=== PATIENT | male | born 1980 | race Caucasian/White ===

== ENCOUNTER 2018-02-17 00:50 | Emergency (ER) | payer MEDICAID ==
[~2018-02-17] VITALS: Ht 175.3 cm; Wt 60.2 kg
[2018-02-17] MEDS ORDERED: ACETAMINOPHEN 325 MG TABLET ONE (01:09)
[2018-02-17] MEDS ORDERED: ACETAMINOPHEN 325 MG TABLET PO ONE (01:30)
[2018-02-17 02:06] VITALS: BP 109/70
== END 2018-02-17 02:09 | disposition home or self-care (01) ==
LOC: ED 01:34
DX: S92.354A Nondisplaced fracture of fifth metatarsal bone, right foot, initial encounter for closed fracture (principal); F17.200 Nicotine dependence, unspecified, uncomplicated; X50.9XXA Other and unspecified overexertion or strenuous movements or postures, initial encounter; Y93.51 Activity, roller skating (inline) and skateboarding; Y92.410 Unspecified street and highway as the place of occurrence of the external cause; Y99.8 Other external cause status
CPT/HCPCS: 99284

== ENCOUNTER 2019-08-27 19:14 | Emergency (ER) | payer MEDICAID ==
[~2019-08-27] VITALS: Ht 172.7 cm; Wt 62.1 kg
[2019-08-27 19:21] VITALS: BP 142/97
== END 2019-08-27 20:48 | disposition home or self-care (01) ==
LOC: ED 20:42
DX: S93.492A Sprain of other ligament of left ankle, initial encounter (principal); S96.912A Strain of unspecified muscle and tendon at ankle and foot level, left foot, initial encounter; X58.XXXA Exposure to other specified factors, initial encounter; Y93.89 Activity, other specified; Y92.410 Unspecified street and highway as the place of occurrence of the external cause; Y99.8 Other external cause status
CPT/HCPCS: 99283

== ENCOUNTER 2019-10-11 10:25 | Emergency (ER) | payer MEDICAID ==
[~2019-10-11] VITALS: Ht 175.3 cm; Wt 63.2 kg
[2019-10-11 10:28] VITALS: BP 120/79
[2019-10-11] MEDS ORDERED: FLUORESCEIN OPHTHALMIC 1 MG STRIP ONE (10:41)
[2019-10-11] MEDS ORDERED: PROPARACAINE OPHTH 0.5%, 15ML ONE (10:42)
--- NOTE | 2019-10-11 10:44 | NUR ---
FIRST CONTACT WITH PT. PT C/O EYE PAIN- OU, "I HAVE PINK, STARTED YESTERDAY", +RED/SWELLING/WATERY/PAIN. PT'S AOX4. RESPS EVEN AND UNLABORED. PA AT BEDSIDE TO EVALUATE AT THIS TIME.
[2019-10-11] MEDS ORDERED: PROPARACAINE OPHTH 0.5%, 15ML EACHEYE ONE (11:00)
[2019-10-11] MEDS ORDERED: FLUORESCEIN OPHTHALMIC 1 MG STRIP EACHEYE ONE (11:00)
--- NOTE | 2019-10-11 11:20 | NUR ---
VA DONE BY EMT AT THIS TIME.
--- NOTE | 2019-10-11 12:52 | NUR ---
TOMAS OLIVIA. [employer] AT [employer]GE [employer]K.
== END 2019-10-11 12:54 | disposition left against medical advice (07) ==
LOC: ED 12:45
DX: H10.023 Other mucopurulent conjunctivitis, bilateral (principal)
CPT/HCPCS: 99283

== ENCOUNTER 2021-01-01 01:45 | Emergency (ER) | payer MEDICAID ==
[2021-01-01] MEDS ORDERED: OXYMETAZOLINE NASAL SPRAY 0.05%, 15ML NAS ONE (02:00)
== END 2021-01-01 02:53 | disposition home or self-care (01) ==
LOC: ED 01:49
DX: S00.31XA Abrasion of nose, initial encounter (principal); L01.00 Impetigo, unspecified; X58.XXXA Exposure to other specified factors, initial encounter; Y93.89 Activity, other specified; Y92.89 Other specified places as the place of occurrence of the external cause; Y99.8 Other external cause status
CPT/HCPCS: 99283

== ENCOUNTER 2021-02-28 20:18 | Emergency (ER) | payer MEDICAID ==
[~2021-02-28] VITALS: Ht 175.3 cm; Wt 61.4 kg
--- NOTE | 2021-02-28 21:37 | NUR ---
[id number]
--- NOTE | 2021-02-28 22:28 | NUR ---
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
--- NOTE | 2021-02-28 22:30 | NUR ---
pt walked back to room at this time. states about a week ago he began having drainage from his penis. states today it got worse and he began sweating significantly. c/o yellow drainage and foul smell, burning on urination. Patient is resting comfortably in bed. Bed in lowest, rails engaged, call light on lap. [facility].
[2021-02-28] MEDS ORDERED: CEFTRIAXONE 1,000 MG IM ONE (23:00)
[2021-02-28] MEDS ORDERED: AZITHROMYCIN 500 MG TABLET PO ONE (23:00)
[2021-02-28] MEDS ORDERED: AZITHROMYCIN 500 MG TABLET ONE (23:04)
[2021-02-28] MEDS ORDERED: CEFTRIAXONE 1,000 MG ONE (23:05)
[2021-02-28] MEDS ORDERED: LIDOCAINE-MPF 1%, 2ML ONE (23:05)
[2021-02-28 23:10] LABS: MICROSCOPIC INDICATED
[2021-02-28 23:28] VITALS: BP 103/62
--- NOTE | 2021-02-28 23:47 | NUR ---
Patient given discharge instructions and they have confirmed that they understand the instructions. Patient ambulatory with steady gait. NAD, all questions answered appropriately, denies additional needs at this time. No personal belongings left in room after discharge.
== END 2021-02-28 23:49 | disposition home or self-care (01) ==
LOC: ED 22:42
DX: A64 Unspecified sexually transmitted disease (principal); R30.0 Dysuria; F17.210 Nicotine dependence, cigarettes, uncomplicated
CPT/HCPCS: 81001; 87086; 87491; 87591; 96372; 99283; 99406; J0696